=== PATIENT | female | born 1940 | race African-American/Black ===

== ENCOUNTER 2022-02-26 10:02 | Outpatient (CLI) | payer MEDICARE, MEDICAID, SELFPAY | END 2022-02-26 10:03 | disposition home or self-care (01) | LOC: ANHAUDIO 10:05 | PROVIDERS: Visit Provider Otolaryngology | DX: H90.3 Sensorineural hearing loss, bilateral (principal) | CPT/HCPCS: 92557; 92567 ==

== ENCOUNTER 2022-05-13 08:44 | Outpatient (CLI) | payer MEDICARE, MEDICAID, SELFPAY ==
--- NOTE | ~2022-05-13 | NM_ITS ---
EXAMINATION: NM darrell stress w perfusion DATE: 05/13/2022 11:56 CDT INDICATION: Dyspnea TECHNIQUE: Rest images were obtained following intravenous administration of 11.2 mCi Tc99m tetrofosm in (Myoview). The patient was infused intravenously with Lexiscan (regadenoson). Then, 32.5 mCi Tc99m tetrofosmin (Myoview) was administered intravenously, and stress images were obtained. Data was ginger nstructed into short axis and horizontal and vertical long axis SPECT images. Gated SPECT images were also obtained. COMPARISON: None. FINDINGS: There is no definite reversible or fixed perfusion abnormality to suggest ischemia or infar ction. There is no segmental wall motion abnormality. Left ventricular ejection fraction measures 7 7%. IMPRESSION: 1. No definite ischemia or infarct. 2. Normal left ventricular ejection fraction measuring 77%. Reviewed, dictated and finalized at location B.
--- NOTE | 2022-05-13 08:52 | ECHO_ITS ---
Patient Info Name: Opal Austin Age: 81 years : 1940 Gender: Female Ht: 62 in Wt: 225 lbs BSA: 2.17 m2 HR: 80 bpm BP: 145 / 93 mmHg Technical Quality: Fair Exam Date: 05/13/2022 9:27 AM Exam Location: [facility] Pulmonary Patient Status: Outpatient Admit Date: 05/13/2022 Staff Ordering Physician: Justice Carias DO University Teacher: Ethan Turcios RDCS Attending Provider: Justice Carias DO Referring Physician: Jv NOVAK; Exam Type: CA echo doppler color flow Study Info Indications R06.00 - Dyspnea, unspecified Complete two-dimensional, color flow and Doppler transthoracic echocardiogram is performed. Summary 1. Complete two-dimensional, color flow and Doppler transthoracic echocardiogram is performed. 2. Left ventricular chamber dimension is normal. 3. Left ventricular systolic function is normal, estimated at 55-60%. 4. The left ventricular diastolic function is grade I diastolic dysfunction. 5. E/e' 8 is minimally elevated. 6. Left atrial chamber dimension is mildly enlarged. 7. There is trivial pericardial effusion. Left Ventricle E/e' 8 is minimally elevated. Left ventricular chamber dimension is normal. Left ventricular systolic function is normal, estimated at 55-60%. The left ventricular diastolic function is grade I diastolic dysfunction. Right Ventricle Right ventricular systolic function is normal and with normal TAPSE 1.7 cm. Right ventricular chamber dimension is normal. Left Atria Left atrial chamber dimension is mildly enlarged. Right Atria Right atrial chamber dimension is normal. Aortic Valve The aortic valve is probable trileaflet. There is no aortic valve stenosis. There is no aortic valve regurgitation. Pulmonic Valve There is no pulmonic regurgitation. Mitral Valve There is no mitral valve stenosis. There is no mitral valve regurgitation. Tricuspid Valve There is no tricuspid valve regurgitation. Pericardium/Pleural There is trivial pericardial effusion. Inferior Vena Cava Normal inferior vena cava with >50% collapse upon inspiration consistent with normal right atrial pressure, 5 mmHg. Aorta The aortic root size at the sinus of Valsalva is normal. Left Ventricular Outflow Tract Name Value Normal LVOT 2D LVOT Diameter 1.8 cm LVOT Doppler LVOT Peak Gradient 4 mmHg LVOT Mean Gradient 3 mmHg LVOT VTI 19 cm LVOT VTI/AV VTI Ratio 0.8 LVOT Stroke Volume 49 ml LVOT CO 3.8 l/min LVOT CI 1.8 l/min/m2 Mitral Valve Name Value Normal MV Doppler MV Peak Gradient 3 mmHg MV Mean Gradient 1 mmHg MV Decel Gaines
[2022-05-13 09:29] LABS: Anion Gap 9 mmol/L (8-16); Blood Urea Nitrogen 19 mg/dL (7-17); Calcium 9.6 mg/dL (8.4-10.2); Carbon Dioxide 29 mmol/L (22-30); Chloride 100 mmol/L (98-107); Estimated Glomerular Filt Rate > 60; Glucose 135 mg/dL (65-110); Magnesium 1.9 mg/dL (1.6-2.3); Sodium 138 mmol/L (137-145)
--- NOTE | 2022-05-13 09:45 | EST_ITS ---
Patient Info Name: Opal Austin Age: 81 years : 1940 Gender: Female Ht: 62 in Wt: 225 lbs BSA: 2.17 m2 HR: 75 bpm BP: 113 / 70 mmHg Heart Rhythm: Sinus Rhythm Exam Date: 05/13/2022 10:39 AM Exam Location: [facility] Stress Patient Status: Outpatient Admit Date: 05/13/2022 Staff Ordering Physician: Justice Carias DO Attending Provider: Justice Carias DO Exercise Technologist: Isidra Rivera CT Exercise Physician: Justice Carias DO Exam Type: CA stress darrell w NM Study Info Indications R06.00 - Dyspnea, unspecified A regadenoson stress test was performed. Summary 1. 1. Negative lexiscan stress test for ischemic ST changes by ECG criteria. 2. 2. Stable hemodynamics throughout the test. 3. 3. Nuclear scan to follow and will be reported separately. Please correlate with it. 4. 4. Patient informed of the above results. Protocol: Lexiscan Stress ECG Details Stage: REST Duration (min): 1 min : 1 sec HR (bpm): 77 SBP (mmHg): 113 DBP (mmHg): 70 Stage: REST Duration (min): 13 min : 23 sec HR (bpm): 76 SBP (mmHg): 113 DBP (mmHg): 70 Stage: STAGE 1 Duration (min): 1 min : 0 sec HR (bpm): 87 SBP (mmHg): 110 DBP (mmHg): 81 Stage: RECOVERY Duration (min): 1 min : 0 sec HR (bpm): 88 SBP (mmHg): 110 DBP (mmHg): 81 Stage: RECOVERY Duration (min): 2 min : 0 sec HR (bpm): 84 SBP (mmHg): 110 DBP (mmHg): 81 Stage: RECOVERY Duration (min): 2 min : 54 sec HR (bpm): 85 SBP (mmHg): 119 DBP (mmHg): 78 Rest HR: 76 bpm Peak HR: 91 bpm Rest Sys BP: 113 mmHg Peak Sys BP: 119 mmHg Max Pred HR: 140 bpm % Max Pred HR: 65 % Target HR: 119 bpm Max RPP: 10,829 bpm*mmHg Termination Reason: Completed protocol Cardiac Symptoms: Shortness of breath Total Time: 1 min : 0 sec Rest Barlow BP: 70 mmHg Peak Barlow BP: 78 mmHg Total Dose: 0.4 mg Resting ECG Sinus rhythm, low voltage in precordial leads, borderline T wave in diffuse leads. Stress ECG No ST changes. Arrhythmias None. Report Signatures
== END 2022-05-13 08:45 | disposition home or self-care (01) ==
LOC: ANHCARD 08:47
PROVIDERS: Visit Provider Internal Medicine Cardiovascular Disease
DX: I10 Essential (primary) hypertension (principal); R06.09 Other forms of dyspnea; I51.7 Cardiomegaly
CPT/HCPCS: 36415; 78452; 80048; 83735; 93017; 93306; A9502; J2785